=== PATIENT | female | born 1990 | race Caucasian/White ===

== ENCOUNTER 2017-01-06 13:36 | Emergency (ER) | payer OTHER ==
--- NOTE | ~2017-01-06 | CR132 ---
[facility] A Service of [facility] RADIOLOGY TEXT RESULTS PATIENT: SARAHY WONG LOCATION: CFTX : 86 UNIT #: [id number] AGE: [address]: Rosio Pickett SEX: F ORDER DR: [id number] [facility] [address] [place], [place] [address] [id number] E MR#: [id number] Acc #: [id number] NAME: SARAHY WONG : 1990 SEX: F STUDY DATE/TIME: 01/06/2017 14:27 UNIT: [facility] ROOM: STUDY DESCRIPTION: CR Forearm 2 View Lt Attending Physician: Rosio Pickett Pa-C Ordering Physician: Ed Doc Bo Kim Primary Care Physician: No Primary Care Physician MEDICAL IMAGING REPORT This report is preliminary unless electronic signature is present EXAM Left forearm. HISTORY Pain and swelling in the left forearm for the past 1 1/2 weeks. Intravenous drug use. Evaluate for foreign body. TECHNIQUE Two views of the forearm were obtained. FINDINGS Soft tissue swelling is seen over the ventral aspect of the distal forearm. There is no evidence of radiodense foreign body or acute bony abnormality. No gas is seen in the soft tissues. Dictated by... Wilder Lee M.D. THIS IS AN ELECTRONICALLY VERIFIED REPORT Wilder Lee M.D. at 01/06/2017 4:42 PM CLINT/konrad TD: 01/06/2017 15:17 JOB #: [id number] MEDICAL IMAGING REPORT Page 1 of 1 COPY
== END 2017-01-06 15:20 | disposition home or self-care (01) ==
LOC: CED 13:36 → CFTX 13:36 → CED 14:20 → CFTX 15:20
DX: L02.414 Cutaneous abscess of left upper limb (principal); F17.200 Nicotine dependence, unspecified, uncomplicated; Z98.890 Other specified postprocedural states
CPT/HCPCS: 10060; 73090; 87070; 87077; 87186; 87205; 99283

== ENCOUNTER 2017-01-10 17:27 | Emergency (ER) | payer OTHER ==
[~2017-01-10] VITALS: Ht 149.9 cm; Wt 43.1 kg
== END 2017-01-10 19:00 | disposition home or self-care (01) ==
LOC: CED 17:27
DX: T23.001A Burn of unspecified degree of right hand, unspecified site, initial encounter (principal); L02.413 Cutaneous abscess of right upper limb; F17.210 Nicotine dependence, cigarettes, uncomplicated; Z79.2 Long term (current) use of antibiotics; X08.8XXA Exposure to other specified smoke, fire and flames, initial encounter
CPT/HCPCS: 16000; 99282